=== PATIENT | female | born 1940 | race Caucasian/White ===

== ENCOUNTER → 2019-06-03 08:58 | Outpatient (CLI) | payer OTHER, SELFPAY ==
--- NOTE | 2019-06-03 09:04 | CT_ITS ---
STUDY: CT ABDOMEN AND PELVIS WITHOUT CONTRAST REASON FOR EXAM: Female, 79 years old. CONGENITAL OCCLUSION OF URETEROPELVIC JUNCTION RADIATION DOSAGE (If Supplied By Facility): CTDIvol = ( 13.20 ) mGy, DLP = ( 1079.91 ) mGycm TECHNIQUE: Transaxial images were obtained from the dome of the diaphragm to the symphysis pubis without oral contrast, and without intravenous contrast. Sagittal and coronal images were reconstructed. Individualized dose optimization techniques were used for this CT. COMPARISON: None. FINDINGS: Minimal increased linear markings at the left lung base suggestive of underlying atelectasis and/or scarring. The visualized portions of the heart are within normal limits. There is decreased attenuation of the liver consistent with steatosis. There is evidence of a dilated intrahepatic biliary ducts with a small amount of air in the anterior left hepatic ducts. There is a dilatation of the common bile duct with a transverse dimension of 1.3 cm down to the region of the head of the pancreas. There are surgical clips in the gallbladder fossa consistent with a prior cholecystectomy. Normal spleen. Normal pancreas. Normal bilateral adrenal glands. Marked degree of the right hydronephrosis. 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 There is also evidence of a 4.1 cm x 3.4 cm cyst in the upper pole of the right kidney. Mild degree of the left hydronephrosis. The left ureter is not dilated. Several scattered small left renal cysts. Normal visualized stomach. Normal small intestine. Normal colon. The appendix is visualized and appears normal. There is diffuse atherosclerotic calcification of the abdominal aorta, without a demonstrated aneurysm. Normal inferior vena cava. Normal retroperitoneum. Normal urinary bladder. Prominent vascularity in the pelvis suggestive of possible variceal formation. There is a small umbilical hernia containing fat. There are diffuse degenerative changes of the visualized lumbar spine. Minimal degree of the levoscoliosis of the lumbar spine. Straightening of the normal lumbar lordosis. CT/Abdomen/Pelvis W IV Cont ONLY IMPRESSION: Bilateral hydronephrosis right worse than left. Bilateral renal cysts more prominent on the right side. Fatty infiltration of the liver. Dilated intrahepatic biliary ducts as well as the common bile duct. Electronically Signed: Frank Nicholson, at 10:28 EDT , Service support ,
[2019-06-03 09:26] LABS: CREATININE FINGERSTICK 0.6 mg/dL (0.55-1.02); EGFR FINGERSTICK > 60.0000 mL/min (>60)
== END ==
PROVIDERS: PCP Family Medicine; Referring Provider Urology; Visit Provider Urology
DX: Q62.11 Congenital occlusion of ureteropelvic junction (principal); N13.39 Other hydronephrosis
CPT/HCPCS: 74177; Q9967

== ENCOUNTER → 2019-06-05 09:40 | Outpatient (CLI) | payer OTHER, SELFPAY ==
--- NOTE | 2019-06-05 09:41 | NM_ITS ---
NAME: Janeen Tellez PROCEDURE: NM Renal Flow/Function with Lasix ACCESSION NUMBER: [id number] CLINICAL HISTORY: HYDRONEPHROSIS INDICATION: Hydronephrosis. TECHNIQUE: A renal scan was obtained following intravenous administration of 11 mCi of MAG3 technetium 99m. Lasix was given, 10 mg intravenously at 3 minutes into the study. A renal angiogram was obtained to assess renal perfusion followed by a cortical concentration phase. This generated a time activity curve to provide graphic representation of the uptake and excretion of the radiopharmaceutical by the kidneys giving renal split function. Planar images were obtained in the anterior projection. FINDINGS: There is symmetrical decreased blood flow to both kidneys. This is in keeping with bilateral medical renal disease. There is decreased rise to peak activity in both kidneys. There is decreased excretion of the radiopharmaceutical bilaterally. The right kidney corresponds to 58% of the renal function and the left kidney is 42%. There is evidence of bilateral hydronephrosis. NM/Renal Scan w/ Pharm Intervent IMPRESSION: Decreased bilateral function of both kidneys with evidence of hydronephrosis and decreased excretion bilaterally worse on the right side. 58% right renal function and 42% left renal function. Electronically Signed: Frank Nicholson, at 14:20 EDT , Service support ,
== END ==
PROVIDERS: PCP Family Medicine; Referring Provider Urology; Visit Provider Urology
DX: N13.30 Unspecified hydronephrosis (principal)
CPT/HCPCS: 78708; A9562; J1940

== ENCOUNTER → 2019-06-09 | Outpatient (CLI) | payer OTHER, SELFPAY | END | disposition home or self-care (01) | LOC: LABSPEC 16:59 | PROVIDERS: PCP Family Medicine; Referring Provider Urology; Visit Provider Urology | DX: N39.0 Urinary tract infection, site not specified (principal) | CPT/HCPCS: 87077; 87086; 87088; 87186 ==